=== PATIENT | male | born 2000 | race Hispanic/Latino ===

== ENCOUNTER 2018-12-11 16:01 | Emergency (ER) | payer BC, SELFPAY ==
[~2018-12-11 16:01] MED LIST: Iopamidol 370 76% 100 ML VIAL ONE
[2018-12-11 16:21] LABS: #Basophils 0.1 thou/uL (0.0-0.2); #Lymphocytes 2.5 thou/uL (1.20-3.40); #Monocytes 0.6 thou/uL (0.11-0.59); #Neutrophils 5.8 thou/uL (1.40-6.50); %Basophils 0.8 % (0.0-1.0); %Eosinophils 0.5 % (0.0-10.0); %Lymphocytes 27.9 % (28.0-48.0); %Monocytes 6.2 % (0.0-4.0); %Neutrophils 64.5 % (31.0-61.0); Hemoglobin 17.1 g/dL (14.0-18.0); Mean Corpuscular HGB CONC 33.4 g/dL (32.0-36.0); Mean Corpuscular Hemoglobin 28.6 pg (25.0-35.0); Mean Corpuscular Volume 85.7 fL (78.0-98.0); Mean Platelet Volume 7.4 fL (7.4-10.4); Platelet Count 299 thou/uL (130-400); RBC Distribution Width 10.5 % (11.5-14.5); Red Blood Cell (RBC) Count 5.97 mill/uL (4.00-5.20)
--- NOTE | 2018-12-11 16:21 | RAD ---
RADIOGRAPH CHEST 1 VIEW: DATE: 12/11/2018 HISTORY: 18-year-old male with dyspnea FINDINGS: The visualized lung paez are clear. The cardiomediastinal silhouette and hilar shadows are normal. The lateral costophrenic angles are sharp. The osseous structures appear normal. There is no pneumothorax. IMPRESSION: Negative.
[2018-12-11 16:26] LABS: Bilirubin Small (Negative); Blood, Urine Negative (Negative); Clarity Clear (Clear); Glucose, Urine (Dipstick) Negative (Negative); Leukocyte Negative (Negative); Nitrite Negative (Negative); Protein, Urine (Dipstick) Negative (Neg-Trace); Urobilinogen 0.2 mg/dL (Less than 2)
[2018-12-11 16:36] LABS: ALT (SGPT) 117 U/L (8-55); AST (SGOT) 31 U/L (5-34); Albumin 5.3 g/dL (3.5-5.0); Alkaline Phosphatase 80 U/L (Less than 750); Anion Gap 19 mmol/L (10-20); BUN (Urea Nitrogen) 22 mg/dL (8.9-20.6); Bilirubin, Total 1.5 mg/dL (0.2-1.2); Calc. Creatinine Clearance 0 mL/min (70-130); Calcium 11.2 mg/dL (7.8-10.44); Carbon Dioxide 21 mmol/L (22-29); Chloride 104 mmol/L (98-107); Estimated GFR-MDRD 82; Globulin 4.2 g/dL (2.4-3.5); Glucose 107 mg/dL (70-105); Lipase 7 U/L (8-78); Magnesium 2.8 mg/dL (1.7-2.2); Potassium 4.1 mmol/L (3.5-5.1); Protein, Total 9.5 g/dL (6.0-8.3); Sodium 140 mmol/L (136-145)
[2018-12-11 16:36] LABS: Amphetamine Not Detected (NotDetected); Barbiturates Screen Not Detected (NotDetected); Benzodiazepine Screen Detected (NotDetected); Cocaine Metabolite Screen Not Detected (NotDetected); Medtox Control Line Valid? VALID (VALID); Methadone Not Detected (NotDetected); Methamphetamine Not Detected (NotDetected); Opiate Screen Detected (NotDetected); Oxycodone Screen Not Detected (NotDetected); Phencyclidine (PCP) Not Detected (NotDetected); THC/Cannabinoid Screen Detected (NotDetected); Tricyclic Screen Not Detected (NotDetected)
[2018-12-11] MEDS ORDERED: Adacel (T-DAP) 0.5 ML SYRINGE ONE (16:40)
[2018-12-11] MEDS ORDERED: Lidocaine 1% w/Epinephrine 1:100K 30 ML VIAL ONE (16:40)
[2018-12-11] MEDS ORDERED: Ondansetron PF 4 MG/2 ML Vial ONE ×2 (16:43→18:31)
--- NOTE | 2018-12-11 17:54 | CT ---
CT HEAD WITHOUT CONTRAST: INDICATIONS: Mental status change. FINDINGS: The ventricles have normal size and position. No evidence of mass or hemorrhage. No edema. There i s mucosal thickening in the paranasal sinuses. IMPRESSION: No acute intracranial abnormality. POS: [facility]
--- NOTE | 2018-12-11 17:57 | CT ---
CT ABDOMEN AND PELVIS WITH IV CONTRAST: INDICATIONS: Syncope. Abdominal pain. FINDINGS: The lung bases are clear. The liver, spleen, and pancreas are unremarkable. The adrenal glands are normal. The kidneys are unremarkable. Small bowel loops are of normal calibe r. Appendix appears unremarkable. Stool throughout the colon. No free fluid or adenopathy identifi ed. Aorta of normal caliber. IMPRESSION: No acute abnormality identified. POS: [facility]
[2018-12-11] MEDS ORDERED: Sodium Chloride 0.9% 1,000 ML ONE (18:19)
[2018-12-11 18:51] LABS: Acetaminophen Less than 6.0 mcg/mL (10.0-30.0); Alcohol Less than 10 mg/dL (Less than 10); Salicylate Less than 8.0 mg/dL (15.0-30.0)
[2018-12-11] MEDS ORDERED: Ketorolac Tromethamine 30 MG/ML VIAL ONE (19:21)
[2018-12-11 19:32] LABS: Lactic Acid 1.1 mmol/L (0.5-2.2)
== END 2018-12-11 21:00 | disposition home or self-care (01) ==
LOC: NAV ERS 16:01
DX: R55 Syncope and collapse (principal); K59.00 Constipation, unspecified; R11.2 Nausea with vomiting, unspecified
CPT/HCPCS: 70450; 71045; 74177; 80053; 80306; 80307; 81003; 82550; 83605; 83690; 83735; 84443; 85025; 90715; 93005; 94760; 96361; 96372; 96374; 96375; 96376; J0500; J1885; J2001; J2405; J7050; Q9967

== ENCOUNTER 2025-05-19 13:04 | Emergency (ER) | payer BC, SELFPAY ==
[2025-05-19 15:12] LABS: ALT (SGPT) 43 U/L (Less than 45); AST (SGOT) 39 U/L (11-34); Albumin 4.1 g/dL (3.1-4.5); Alkaline Phosphatase 50 U/L (40-110); Anion Gap 18 mmol/L (10-20); BUN (Urea Nitrogen) 16 mg/dL (8.9-20.6); Bilirubin, Total 0.8 mg/dL (0.3-1.2); Calc. Creatinine Clearance 0 mL/min (70-130); Calcium 9.3 mg/dL (7.8-10.44); Carbon Dioxide 22 mmol/L (22-29); Chloride 101 mmol/L (98-107); Globulin 4.5 g/dL (2.4-3.5); Glucose 97 mg/dL (70-105); Potassium 3.6 mmol/L (3.5-5.1); Sodium 137 mmol/L (136-145)
[2025-05-19 15:13] LABS: Hematocrit 47.9 % (42.0-52.0); Hemoglobin 17.7 g/dL (14.0-18.0); Mean Corpuscular Hemoglobin 29.3 pg (27.0-31.0); Mean Corpuscular Volume 79.6 fl (78.0-98.0); Red Blood Cell (RBC) Count 6.02 mill/uL (4.70-6.10); White Blood Cell (WBC) Count 5.3 10x3/uL (4.8-10.8)
[2025-05-19 15:14] LABS: Platelet Count 197 10x3/uL (130-400)
[2025-05-19 15:17] LABS: Platelet Adequacy Comment Appears Adequate
== END 2025-05-19 16:03 | disposition home or self-care (01) ==
LOC: NAV ERS 13:04
DX: B34.9 Viral infection, unspecified (principal)
CPT/HCPCS: 71046; 80053; 85025; 87428